=== PATIENT | female | born 1960 | race Two or more races ===

== ENCOUNTER 2017-08-24 02:27 | Emergency (ER) | payer OTHER ==
[~2017-08-24] VITALS: Ht 162.6 cm; Wt 65.8 kg
== END 2017-08-24 14:37 | disposition home or self-care (01) ==
LOC: ER 02:27
DX: K80.80 Other cholelithiasis without obstruction (principal)

== ENCOUNTER → 2017-08-24 | Emergency (ER) | payer OTHER | END | disposition left against medical advice (07) | LOC: ER 08:27 | DX: Z53.20 Procedure and treatment not carried out because of patient's decision for unspecified reasons (principal) ==